=== PATIENT | male | born 1975 ===

== ENCOUNTER → 2017-06-16 | Outpatient (CLI) | payer OTHER ==
--- NOTE | 2017-06-16 08:04 | DIAGNOSTIC IMAGING REPORT ---
ABDOMEN LIMITED (US) HISTORY: 42 years-old Male INTRA ABDOMINAL PELVIC SWELLING acute pelvic swelling COMPARISON: None available TECHNIQUE: Multiple real-time significant images of the left lower abdominal wall subcutaneous tissues were obtained assessing grayscale appearance and color flow FINDINGS/IMPRESSION: Within the area of concern within the subcutaneous tissues of the left anterior abdominal wall there is an ovoid circumscribed echogenic parallel orientation lesion within the subcutaneous tissues which measures 1.3 x 1.5 x 0.7 cm demonstrating slightly increased through transmission and no internal vascularity. Differential considerations would include lipoma or other subcutaneous soft tissue lesion. The above report was generated using voice recognition software. It may contain grammatical, syntax or spelling errors. Electronically signed by: Maximus Beckford M.D. 06/16/2017 8:03 AM Dictated Date/Time: 06/16/2017 7:59 AM
== END | disposition home or self-care (01) ==
LOC: C.ULTR 07:34
PROVIDERS: ATTEND Family Medicine
DX: R19.00 Intra-abdominal and pelvic swelling, mass and lump, unspecified site (principal); Z88.0 Allergy status to penicillin; Z88.2 Allergy status to sulfonamides